=== PATIENT | male | born 1960 | race Caucasian/White ===

== ENCOUNTER 2024-12-07 13:10 | Inpatient (IN) | payer BC, SELFPAY ==
[2024-12-07] VITALS (40 sets, daily range): BP systolic 90–127; BP diastolic 43–80; BMI 30.8; BMI 30.5
--- NOTE | 2024-12-07 08:20 | ED.GENMED ---
History of Present Illness
General
Chief Complaint: Abdominal Symptoms
Source: patient
Exam Limitations: none
Time Seen by Provider: 12/07/24 08:07
Nursing documentation reviewed up to this point in time: agreed with
History of Present Illness
History of Present Illness:
Patient is a 64-year-old male who presents to the ER for evaluation. Patient started with nausea and diarrhea on Saturday, 6 days ago. He reports symptoms started after eating a roast pig. He ate leftover meat as well. His sons had similar
symptoms but symptoms resolved. He does complain of lower abdominal cramping. He reports stool was brown in color and liquidy multiple episodes of day. He denies any blood in the stools. He denies any fever or chills. He has nauseous but only
vomited once. He has not eating a lot and has decreased appetite and does not feel that he is drinking enough as well.
Phy Exam
General Physical Exam
General Presentation: no apparent distress
General age: appears stated age
General Skin: warm and dry
General Habitus: normal
General Mental: alert
General Hydration: dry mucous membranes
Cardiovascular Exam
Cardiovascular Exam: regular rate/rhythm, no murmur and normal peripheral pulses
Pulmonary Exam
Pulmonary Exam: lungs clear and no respiratory distress
Neurological Exam
Neurological Exam: alert and oriented x3
Musculoskeletal Exam
Musculoskeletal Exam: full ROM
Skin Exam
Skin Exam: normal color and warm/dry
Psychiatric Exam
Psychiatric Exam: normal mood/affect
Course
Orders/Labs/Results
Orders:
Orders
12/07/24 Breakfast
Clear Liquid
At Your Request: Full Participation
Does patient need a safe tray?: No
12/07/24 08:11
IV Insert/Care/Rem.- Treatment PRN
0.9% Sodium Chloride 1000 ml [Nss] 1,000 ml IV BOLUS
12/07/24 08:41
Complete Blood Count/With Diff Urgent
Comprehensive Metabolic Panel Urgent
Lipase Urgent
Serum Osmolality Urgent
12/07/24 09:28
Potassium Chloride [KCl] 40 meq PO NOW STA
12/07/24 09:37
Potassium Chloride [KCl] 40 meq 0.9% Sodium Chloride 250 ml [Nss] 250 ml IV NOW
12/07/24 10:08
0.9% Sodium Chloride 500 ml [Nss] 1,000 ml IV BOLUS
12/07/24 10:52
C difficile Antigen & Toxins Urgent
SOULEYMANE Source: ST
Specimen Description:
Date Specimen was Collected: 12/07/24
Time Specimen was Collected: 10:51
Norovirus by PCR Urgent
SOULEYMANE Source: ST
Specimen Description:
Date Specimen was Collected: 12/07/24
Time Specimen was Collected: 10:51
Stool Culture Urgent
SOULEYMANE Source: Feces/Stool
Specimen Description:
Date Specimen was Collected: 12/07/24
Time Specimen was Collected: 10:51
Stool For WBC Urgent
SOULEYMANE Source: ST
Specimen Description:
Date Specimen was Collected: 12/07/24
Time Specimen was Collected: 10:51
12/07/24 11:25
Add On- LAB Urgent
Tests Added?: Serum osmolality
12/07/24 11:26
Urine Osmolality Random [Osmolality, Random Urine] Urgent
Date Specimen was Collected: 12/08/24
Time Specimen was Collected: 02:39
Urine Sodium Urgent
Date Specimen was Collected: 12/08/24
Time Specimen was Collected: 02:39
12/07/24 12:26
Add On- LAB Routine
Tests Added?: urine creatinine
12/07/24 12:29
Admit/Transfer Patient As Directed
Co-Sign Provider:
Level of Care: Inpatient admission
Assign to:: Medical/Surgical
Physician / Group: barbara
Diagnosis: dehdyration/NICOLE
Reason for Hospitalization: dehydration
NICOLE
Expected length of stay greater than two midnights?: Yes
ELOS- Estimated Length of Stay in days: 3
I certify the patient meets the requirements for IP care: Yes
PRN Pain Medication Management As Directed
May give lesser potent ordered pain med per pt: Yes
preference::
Protocol:: Medication orders for pain may be administered in a
manner that supports deferring to patient preference
when the pt is:
- Requesting an ordered lesser potent pain medication.
Least to most potent pain medications are defined
as: acetaminophen < NSAID < tramadol < opioids
(morphine, oxycodone, hydromorphone).
- Requesting a lesser dose of the same medication IF
ORDERED.
- Requesting a less intrusive route of administration
if both routes are prescribed by the provider (PO <
IV).
12/07/24 12:30
Code Status As Directed
Resuscitation Status: Full Code
12/07/24 13:52
Urinalysis Reflex To Culture Urgent
Date Specimen was Collected: 12/07/24
Time Specimen was Collected: 08:22
Urine Creatinine Urgent
Date Specimen was Collected: 12/07/24
Time Specimen was Collected: 08:22
Urine Microscopic Reflex Cult Urgent
12/07/24 17:03
Acetaminophen [Tylenol] 650 mg PO Q4HPRN PRN
12/07/24 17:03
NEPHROLOGY CONSULT Routine
Consulting Provider: Kelvin Brooke
Was physician already notified: Yes
Activity As Directed
Activity Level: As Tolerated
Intake/ Output As Directed
Frequency: Per unit guidelines
Vital Signs As Directed
Frequency: Per unit guidelines
DX Deep Vein Thrombosis Video Routine
12/07/24 18:01
BMP [Basic Metabolic Panel] Stat
12/07/24 20:00
Heparin 5,000 units SC Q12
12/07/24 21:29
Stool For WBC Routine
SOULEYMANE Source: Feces/Stool
Specimen Description:
Date Specimen was Collected: 12/07/24
Time Specimen was Collected: 21:22
12/08/24 06:13
Basic Metabolic Panel IN AM
12/09/24 06:00
Basic Metabolic Panel IN AM
Complete Blood Count/No Diff IN AM
12/10/24 06:00
Basic Metabolic Panel IN AM
Complete Blood Count/No Diff IN AM
12/11/24 06:00
Basic Metabolic Panel IN AM
Complete Blood Count/No Diff IN AM
Abnormal Lab Results
12/07/24
08:41
WBC 14.1 H 10^3/uL
(4.8-10.8)
MCV 79.7 L fL
(80.0-94.0)
MPV 10.7 H fL
(7.4-10.4)
Abs Immat Gran (auto) 0.6 H 10^3/uL
(0-0.05)
Absolute Neuts (auto) 9.0 H 10^3/uL
(1.4-6.5)
Absolute Monos (auto) 2.5 H 10^3/uL
(0.1-0.6)
Immature Gran % 4.1 H %
(0-0.5)
Lymphocytes % 13.5 L %
(20.5-51.1)
Monocytes % 17.7 H %
(1.7-9.3)
Sodium 123 L mmol/L
(135-145)
Potassium 2.8 L mmol/L
(3.5-5.1)
Chloride 90 L mmol/L
(98-107)
Carbon Dioxide 19 L mmol/L
(22-30)
BUN 94 H mg/dl
(9-20)
Creatinine 4.7 H* mg/dL
(0.7-1.3)
Glucose 125 H mg/dl
(70-99)
12/07/24 08:41
12/07/24 08:41
Vital Signs
Initial and Last Documented VS:
Initial Vital Signs
Temp Pulse Resp Pulse Ox
98.0 F 85 16 98
12/07/24 08:01 12/07/24 08:01 12/07/24 08:01 12/07/24 08:01
Last Documented Vital Signs
Temp Pulse Resp BP Pulse Ox
97.8 F 68 18 123/69 97
12/08/24 02:50 12/08/24 02:50 12/08/24 02:50 12/08/24 02:50 12/08/24 02:50
Electric Refrigerator Preparer consulted with Physician
Electric Refrigerator Preparer consulted with physician?: Yes
Name of Physician Consulted: Wilmer
MDM/Problems Addressed
Differential Diagnosis Includes:
Not limited to dehydration colitis electrolyte abnormality
MDM/Problems Addressed:
Patient is a 64-year-old male presents with persistent diarrhea for the past 6 days which started after eating at a pig roast. His sons also has similar symptoms. Patient presents awake alert he appears dry on exam. Labs reviewed, with multiple
abnormalities. Sodium found to be low at 123 with a low potassium of 2.8 and elevated BUN of 94 creatinine of 4.7 no prior history of kidney disease. Patient's last labs from 2021 reviewed with normal creatinine.
On arrival patient had a liter of fluids ordered with Danilo. Case reviewed with nephrology who does feel that this is dehydration and recommends at least 3 L. Supplemental KCl rider ordered along with p.o. K-Dur. Additional labs added on.
Initial CAT scan was ordered for mild crampiness however we will hold off with renal function as this is likely a colitis.
Patient will require admission to the hospital service for close monitoring electrolyte repletion and hydration.
*Pulse Oximetry
SaO2: 98
Oxygen Mode of Delivery: Room air
Patient hypoxic: no
*Critical Care Note
Total Time (30-74mins, 75-104mins- exclusive of procedures): Not Applicable
comment:
Critical care statement: A total of 35 minutes of critical care time was provided for this patient. This includes management of unstable vital signs, evaluation of the patient at bedside, reviewing the patient's pertinent medical records, discussion
with consultants, review of old EKGs and review of pertinent medical records. This time with separate from time utilized to perform the aforementioned documented procedures
Patient Management
Discussion with other providers: Client Care Consultant (Nephrology Dr. Brooke)
ED Attending Note
-
Portions of this chart may have been created with voice recognition software.� Occasional wrong word or��sound alike� substitutions may have occurred due to the inherent limitations of voice recognition software.
Discharge Plan
Departure
Patient Disposition: Admit
Date of Disposition: 12/07/24
Time of Disposition: 09:34
Admit to: Telemetry
Admit to doctor: hospitalist
Presentation/result/management discussed w/ accepting MD/DO: Hospitalist
Patient with high blood pressure during this ER visit?: No
Condition: Fair
Covid-19: Not Applicable
Discharge Problem:
Acute kidney insufficiency, Acute hyponatremia, Acute hypokalemia, Acute dehydration
Interventions
Interventions:
*Risk Screen - Suicide Last Done: 12/07/24 08:01
*General Assessment Last Done: 12/07/24 08:33
*Neglect/Abuse Screening Last Done: 12/07/24 08:01
*ED- Fall Risk Assessment Last Done: 12/07/24 08:33
*ED COVID-19 Vaccine History Last Done: 12/07/24 08:33
*Nursing Disposition Last Done: 12/07/24 18:32
EC-Jjnubf-Fapzmaqggy Assessment Last Done: 12/07/24 09:34
Discharge Date and Time
Discharge Date/Time: 12/07/24 18:20
[2024-12-07] MEDS: NSS 1000 IV ×3 (08:42→14:37)
[2024-12-07 08:57] LABS: Hematocrit 44.8 % (39.0-52.0); Hemoglobin 16.2 g/dL (13.0-18.0); Mean Corp Hgb Conc. 36.2 g/dL (33.0-37.0); Mean Corpuscular Volume 79.7 fL (80.0-94.0); Nucleated Red Blood Cells % 0 % (-); Platelet Count 247 10^3/uL (130-400); Red Cell Dist. Width 13.3 % (11.5-14.5)
[2024-12-07 09:17] LABS: ALT (SGPT) 22 U/L (0-50); AST (SGOT) 20 U/L (17-59); Albumin 4.2 g/dl (3.5-5.0); Alkaline Phosphatase 59 U/L (38-126); Blood Urea Nitrogen 94 mg/dl (9-20); Calcium 8.4 mg/dl (8.4-10.2); Carbon Dioxide 19 mmol/L (22-30); Chloride 90 mmol/L (98-107); Estimated Creatinine Clearance 19 ml/min; Glucose 125 mg/dl (70-99); Lipase 100 U/L (23-300); Potassium 2.8 mmol/L (3.5-5.1); Sodium 123 mmol/L (135-145); Total Protein 6.8 g/dl (6.3-8.2); eGFR 13.29
[2024-12-07] MEDS: KCL 40 MEQ PO ×2 (10:05→21:55)
[2024-12-07] MEDS: KCL 270 MEQ IV (10:16)
--- NOTE | 2024-12-07 12:08 | HPS.HSE ---
Addendum entered and electronically signed by Myles Jackson MD 12/07/24 14:15:
I saw and examined the patient.
The DATA CENTER ARCHITECT or PA's note was reviewed and I agree with the note.
Comment: 64-year-old male with history of hypertension, nicotine dependence came to the hospital with severe hyponatremia, hypokalemia and acute kidney injury likely secondary to hypovolemia with ongoing diarrhea and dehydration. Monitor stool
output. Continue with clears for now. Check stool studies, norovirus, C. difficile. If negative then can give Imodium. Creatinine 4.7 on admission. Continue with hydration. Consult nephrology. Check urine studies
General: Well Developed, Well Nourished and No Apparent Distress
HEENT: Normocephalic, Moist mucous membranes and Atraumatic
Respiratory: Clear
Cardiac: S1/S2 and Regular Rhythm; No Murmur or Rub
GI: Soft, Non Tender, Non Distended and Normal Bowel Sounds
Musculoskeletal: No Edema
Skin: No Rash
Neuro: AO x 3 and Nonfocal/grossly intact
Psych: Calm
I spent a total of 76 minutes with the patient or on the floor. More than 50% of this time involved counseling and coordination of care.
Original Note:
Family Physician
-
Family Physician: Juan Marc
Chief Complaint
-
diarrhea
History of Present Illness
64-year-old male with PMH for GERD, HTN presented to us with diarrhea for past six days. He reports symptoms started after eating a roast pink. His sons had similar symptoms but symptoms resolved. He does complain of generalized abdominal
cramping. He reports stool was brown in color and liquidy. He denies any blood in the stools. He denies any fever or chills. He has nauseous but only vomited once. patient stated poor oral intake. he has not voided since last night. he
complained of BUSTILLOS and dizzy. he was up every 10 minutes for diarrhea. denied chest pain, sob.denied runny nose, congeston and cough. denied dysuria or hematuria.
admitting for further managment.
Medical History
Past Medical History
Past Medical History: Reports Other
Additional Past Medical History:
GERD
Pernicious anemia
Past Surgical History: Reports Other
Additional Past Surgical History:
Cyst removed from neck
Social History
Tobacco: Smoker (0.5 pack daily)
Alcohol: Occasional
Drug: None
Personal:
Living: With Family
Family History
Family History: Not pertinent
Allergies / Home Medications
Allergies reflects when Allergies were last updated in [employer].
Home Medications with original date entered in [employer]
Allergy/Medication List:
Allergies
Allergy/AdvReac Type Severity Reaction Status Date / Time
No Known Allergies Allergy Verified 12/07/24 08:04
Home Medications
cyanocobalamin (vitamin B-12) 1,000 mcg/mL injection solution 1,000 mcg IM QMONTH 01/02/22
lisinopril 10 mg tablet 10 mg PO DAILY 01/02/22
acetaminophen 500 mg tablet (Tylenol Extra Strength) 500 mg PO Q6HPRN PRN MILD PAIN 12/07/24
calcium carbonate (Tums) 200 mg PO QIDPRN PRN GERD 12/07/24
Review of Systems
-
Constitutional: Reports No Symptoms
EENT: Reports No Symptoms
Respiratory: Reports No Symptoms
Cardiac: Reports No Symptoms
Abdomen/GI: Reports Nausea, Vomiting and Diarrhea
: Reports No Symptoms
Musculoskeletal: Reports No Symptoms
Skin: Reports No Symptoms
Neurological: Reports No Symptoms
Endocrine: Reports No Symptoms
Hematologic/Lymphatic: Reports No Symptoms
Psych: Reports No Symptoms
Physical Exam
Vital Signs
Vital Signs
Temp Pulse Resp BP Pulse Ox
98.0 F 69 17 118/66 100
12/07/24 08:01 12/07/24 11:30 12/07/24 11:30 12/07/24 11:30 12/07/24 11:30
Physical Exam
General: Well Developed, Well Nourished and No Apparent Distress
HEENT: NormoCephalic, Moist mucous membranes and Atraumatic
Respiratory: Clear
Cardiac: S1/S2 and Regular Rhythm; No Murmur or Rub
GI: Soft, Non Tender, Non Distended and Normal Bowel Sounds; No Organomegaly
Rectal: Deferred by Provider
Musculoskeletal: No Clubbing, No Cyanosis and No Edema
Skin: No Rash
Neuro: AO x 3 and Nonfocal/grossly intact
Psych: Calm
Laboratory Results
-
12/07/24 08:41
12/07/24 08:41
Laboratory Results
Total Bilirubin 0.7 mg/dl (0.2-1.3) 12/07/24 08:41
AST 20 U/L (17-59) 12/07/24 08:41
ALT 22 U/L (0-50) 12/07/24 08:41
Alkaline Phosphatase 59 U/L (38-126) 12/07/24 08:41
Lipase 100 U/L (23-300) 12/07/24 08:41
Data Reviewed
-
Lab Data: Labs Reviewed by me
Impression/Plan
-
# Diarrhea likely from food poisoning
- Clear liquid diet
- Stool for cultures, norovirus, c diff, wbc
-WBCs 14.1
-Advance diet as tolerated
# Acute kidney injury/hyponatremia/hypokalemia secondary to hypovolemia secondary to diarrhea
- Creatinine 4.7, BUN 94, K2.8, sodium 123
- Patient received IV KCl/oral KCl in ER
- Patient received normal saline in ER
- Continue to monitor BMP
-Urine osmole, serum awesome, urinalysis, urine sodium pending
- Nephrology aware
#essential HTN
-hold lisinopril due to NICOLE
#Nicotine Dependence
-denied Nicotine patch
-encouraged Smoking Cessation
#DVT prophylaxis
-heparin sq
#CODE status
-full code
[2024-12-07 14:11] LABS: Urine Character Clear (Clear)
[2024-12-07 14:32] LABS: Urine Squamous Cell 0-2 /LPF (Few)
[2024-12-07 14:33] LABS: Urine Red Blood Cell 0-2 /HPF (0-2)
--- NOTE | 2024-12-07 15:29 | W.CON.NEPH ---
Consultation
-
Date/Time Consultation Requested: 12/07/2024 11 AM
Date/Time Consultation Performed: 11/29/2024 11 AM
Requesting Provider: Dr. Hollis
Performing Provider: Dr. Brooke
Reason for Consultation: NICOLE
Medical History
-
Chief Complaint: Diarrhea
History of Present Illness:
Hypertension treated with low-dose lisinopril only which has been stable over time. He has known reflux but does not require chronic proton pump inhibitor therapy. He developed diarrhea for 6 days time which was frequent, at least every 2 or 3
hours. This appeared to be after eating roast pork about 1 week ago. He denied any blood in the stools. There is general abdominal cramping but no vomiting. He does have mild nausea. He had not taken his lisinopril in the first 3 days but after
that began taking it once more. He does report some mild lightheadedness. He has no chest pain or shortness of breath. He has not been able to have much intake given the diarrhea and nausea. He also has had loss of appetite as a result. On
admission he was noted to have a creatinine of 4.7 with sodium that was low potassium that was low and mild metabolic acidosis.
Past Medical History
GERD
Pernicious anemia
Cyst removal
Social History
Tobacco: Smoker
Alcohol: Occasional
Family History
Family History: Not Pertinent
Allergies / Home Medications
Allergy/AdvReac Type Severity Reaction Status Date / Time
No Known Allergies Allergy Verified 12/07/24 08:04
�Medication �Instructions �Recorded �Confirmed �Type
cyanocobalamin (vitamin B-12) 1,000 mcg IM QMONTH 01/02/22 12/07/24 History
1,000 mcg/mL injection solution
lisinopril 10 mg tablet 10 mg PO DAILY 01/02/22 12/07/24 History
acetaminophen 500 mg tablet 500 mg PO Q6HPRN PRN MILD PAIN 12/07/24 12/07/24 History
(Tylenol Extra Strength)
calcium carbonate (Tums) 200 mg PO QIDPRN PRN GERD 12/07/24 12/07/24 History
Review of Systems
-
Diarrhea, nausea minimal vomiting. No chest pain no issues with urination
All other systems: Negative unless noted
Physical Exam
Vital Signs
Vital Signs
Temp Pulse Resp BP Pulse Ox
98.0 F 68 13 110/69 100
12/07/24 08:01 12/07/24 14:18 12/07/24 14:18 12/07/24 14:18 12/07/24 14:18
Lab Results
WBC 14.1 10^3/uL (4.8-10.8) H 12/07/24 08:41
RBC 5.62 10^6/uL (4.70-6.10) 12/07/24 08:41
Hgb 16.2 g/dL (13.0-18.0) 12/07/24 08:41
Hct 44.8 % (39.0-52.0) 12/07/24 08:41
Plt Count 247 10^3/uL (130-400) 12/07/24 08:41
eGFR 13.29 12/07/24 08:41
Albumin 4.2 g/dl (3.5-5.0) 12/07/24 08:41
Laboratory Tests
12/07/24 12/07/24
08:41 13:52
Sodium 123 L
Potassium 2.8 L
Chloride 90 L
Carbon Dioxide 19 L
BUN 94 H
Creatinine 4.7 H*
Serum Osmolality 289
Ur Specific [place] 1.015
Ur Occult Blood Reflex 1+ A
Urine RBC 0-2
Urine Bacteria (Reflex) Few A
Urine Creatinine 109.000
Urine Albumin (Reflex) 2+ A
Laboratory Tests
12/29/21
06:59
Creatinine 1.1
Physical Exam
Patient is awake alert oriented and in no distress. Mood and affect were pleasant, insight and judgment were good. Pupils are equal round and reactive to light, extraocular movements are intact, sclera were anicteric. Hearing was normal, ears and
nose are intact. Oropharynx was clear. Neck was supple with trachea midline and no thyromegaly. Heart was regular rate and rhythm without rubs. Lower extremities without edema. Lungs were clear to auscultation bilaterally and with normal
excursion. Abdomen was soft, nontender, with normal active bowel sounds, and no hepatosplenomegaly. Skin was without rash and with normal turgor.
Data Reviewed
-
Labs: Labs Reviewed by me
Old Records: Reviewed
Assessment/Plan
-
Assessment
NICOLE
Diarrhea
GERD
Hyponatremia
Hypokalemia
Metabolic acidosis
Hypotension
Plan
Aggressive IV fluid resuscitation. I suspect that he is at least 8-10 L deficit.
He will need at least 6 L today of saline.
Potassium will be replaced
Follow BMP
Check fractional excretion of sodium
If potassium does not correct easily will need EKG
Hold lisinopril
--- NOTE | 2024-12-07 18:41 | PTCARENOTE ---
Pt received from ED and walked to bed from ED stretcher without assistance. VSS. AAOx4. IV fluids infusing. Pt stating that pain and weakness has improved since arrival to the hospital and he is now hungry. Clear liquid diet ordered. Call [facility]
within reach, POC ongoing.
[2024-12-07 18:45] LABS: Blood Urea Nitrogen 81 mg/dl (9-20); Calcium 7.1 mg/dl (8.4-10.2); Carbon Dioxide 21 mmol/L (22-30); Chloride 100 mmol/L (98-107); Estimated Creatinine Clearance 28 ml/min; Glucose 85 mg/dl (70-99); Potassium 3.1 mmol/L (3.5-5.1); Sodium 128 mmol/L (135-145); eGFR 20.31
[2024-12-07] MEDS: HEPARIN 5000 UNITS SC (20:52)
[2024-12-08] MEDS: NSS 1000 IV ×2 (01:06→13:36)
[2024-12-08 02:50] VITALS: BP 123/69
[2024-12-08 06:57] LABS: Hematocrit 40.3 % (39.0-52.0); Hemoglobin 14.7 g/dL (13.0-18.0); Mean Corp Hgb Conc. 36.5 g/dL (33.0-37.0); Mean Corpuscular Volume 81.3 fL (80.0-94.0); Platelet Count 185 10^3/uL (130-400); Red Cell Dist. Width 13.7 % (11.5-14.5)
[2024-12-08 07:00] LABS: Blood Urea Nitrogen 70 mg/dl (9-20); Calcium 7.5 mg/dl (8.4-10.2); Carbon Dioxide 20 mmol/L (22-30); Chloride 105 mmol/L (98-107); Estimated Creatinine Clearance 38 ml/min; Glucose 80 mg/dl (70-99); Potassium 3.4 mmol/L (3.5-5.1); Sodium 132 mmol/L (135-145); eGFR 29.76
[2024-12-08 07:46] VITALS: BP 118/63
[2024-12-08] MEDS: HEPARIN 5000 UNITS SC ×2 (08:17→19:34)
[2024-12-08 09:14] LABS: Nucleated Red Blood Cells % 0 % (-)
[2024-12-08] MEDS: KCL 40 MEQ PO (10:04)
[2024-12-08] MEDS: IMODIUM 2 MG PO ×2 (10:22→17:42)
--- NOTE | 2024-12-08 10:26 | CM ---
Addendum entered by Amalia Ledbetter 12/08/24 10:29:
correction: Pharmacy: [facility] [address], [place]
Original Note:
Patient seen at bedside with his sister
IA completed
Lives in a 1 story home with his sons, no GIL
PLOF: independent, drives
PLOF: Independent
Denies DME
Denies VN/Rehab
Denies Insecurities
PCP: Dr. Marc
Pharmacy: [facility], [facility], [place]
PLAN: home, no needs
sister to transport
[2024-12-08 11:15] VITALS: BP 116/63
--- NOTE | 2024-12-08 11:43 | W.PN.HOSP.TC ---
Today's Communication/Plan
-
Monitor vital signs see plan
Normal saline
Advance diet to full's, if tolerates then solids
Imodium
monitor renal function
Assessment / Plan
Assessment / Plan
General: Well Developed, Well Nourished and No Apparent Distress
HEENT: Normocephalic, Moist mucous membranes and Atraumatic
Respiratory: Clear
Cardiac: S1/S2 and Regular Rhythm; No Murmur or Rub
GI: Soft, Non Tender, Non Distended and Normal Bowel Sounds
Musculoskeletal: No Edema
Skin: No Rash
Neuro: AO x 3 and Nonfocal/grossly intact
Psych: Calm
Diarrhea likely from food poisoning/gastritis
Tolerating clears, advance to full's
C. difficile, norovirus negative.
Imodium
- Stool for cultures, norovirus, c diff, wbc
Acute kidney injury/hyponatremia/hypokalemia secondary to hypovolemia secondary to diarrhea
- Creatinine 4.7, BUN 94, K2.8, sodium 123
Replete potassium
Continue with normal saline
Creatinine improving
Nephrology following
Monitor renal function
#essential HTN
-hold lisinopril due to NICOLE
#Nicotine Dependence
-denied Nicotine patch
-encouraged Smoking Cessation
#DVT prophylaxis
-heparin sq
#CODE status
-full code
I spent a total of 52 minutes with the patient or on the floor. More than 50% of this time involved counseling and coordination of care.
Anticipated Discharge: 24 - 48 hours
Subjective/Interval History
-
Date of Service: December 08, 2024
Denies nausea
Objective Data
-
Labs:
Laboratory Results
12/08/24
06:13
WBC 10.5
Hgb 14.7
Hct 40.3
Plt Count 185 D
Sodium 132 L
Potassium 3.4 L
Chloride 105
Carbon Dioxide 20 L
BUN 70 H
Creatinine 2.4 H
Glucose 80
Calcium 7.5 L
Vital Signs:
Vital Signs
Temp Pulse Resp BP Pulse Ox
98.1 F 69 16 116/63 99
12/08/24 11:15 12/08/24 11:15 12/08/24 11:15 12/08/24 11:15 12/08/24 11:15
I&O
12/07/24 12/08/24 12/09/24
06:59 06:59 06:59
Output Total 350 / 350
Balance -350 / -350
--- NOTE | 2024-12-08 14:42 | W.PN.NEPH.PH ---
Today's Communication / Plan
-
IVF
Assessment/Plan
-
Assessment
NICOLE
Diarrhea
GERD
Hyponatremia
Hypokalemia
Metabolic acidosis
Hypotension
Plan
continue IVF
Potassium will be replaced
Follow BMP
await fractional excretion of sodium
Hold lisinopril
-
-
Date of Service: December 08, 2024
CC / HPI / ROS
-
Chief Complaint:
NICOLE
History of Present Illness:
NICOLE/Cr down to 2.4
BP stable
diarrhea improving
K up to 3.4
Review of Systems:
no CP/SOB
Labs
-
Labs:
WBC 10.5 10^3/uL (4.8-10.8) 12/08/24 06:13
RBC 4.96 10^6/uL (4.70-6.10) 12/08/24 06:13
Hgb 14.7 g/dL (13.0-18.0) 12/08/24 06:13
Hct 40.3 % (39.0-52.0) 12/08/24 06:13
Plt Count 185 10^3/uL (130-400) D 12/08/24 06:13
Sodium 132 mmol/L (135-145) L 12/08/24 06:13
Potassium 3.4 mmol/L (3.5-5.1) L 12/08/24 06:13
Chloride 105 mmol/L (98-107) 12/08/24 06:13
Carbon Dioxide 20 mmol/L (22-30) L 12/08/24 06:13
BUN 70 mg/dl (9-20) H 12/08/24 06:13
Creatinine 2.4 mg/dL (0.7-1.3) H 12/08/24 06:13
eGFR 29.76 12/08/24 06:13
Glucose 80 mg/dl (70-99) 12/08/24 06:13
Calcium 7.5 mg/dl (8.4-10.2) L 12/08/24 06:13
Albumin 4.2 g/dl (3.5-5.0) 12/07/24 08:41
Physical Exam
-
Vital Signs:
Vital Signs
Temp Pulse Resp BP Pulse Ox
98.1 F 69 16 116/63 99
12/08/24 11:15 12/08/24 11:15 12/08/24 11:15 12/08/24 11:15 12/08/24 11:15
Respiratory:: Bilateral: CTA
Lung Excursion:: Normal
Abdomen:: Nontender and Soft
Bowel Sounds:: Normal
Extremity Edema:: None: Bilateral:
[2024-12-08 14:55] VITALS: BP 121/72
[2024-12-08 19:00] VITALS: BP 114/61
[2024-12-08 22:53] VITALS: BP 120/63
[2024-12-09 03:00] VITALS: BP 108/64
[2024-12-09] MEDS: NSS 1000 IV ×2 (06:11→22:15)
[2024-12-09 07:27] LABS: Blood Urea Nitrogen 42 mg/dl (9-20); Calcium 7.9 mg/dl (8.4-10.2); Carbon Dioxide 20 mmol/L (22-30); Chloride 108 mmol/L (98-107); Estimated Creatinine Clearance 66 ml/min; Glucose 98 mg/dl (70-99); Potassium 3.3 mmol/L (3.5-5.1); Sodium 134 mmol/L (135-145); eGFR 56.83
[2024-12-09 07:39] VITALS: BP 123/67
[2024-12-09 07:57] LABS: Hematocrit 39.0 % (39.0-52.0); Hemoglobin 13.9 g/dL (13.0-18.0); Mean Corp Hgb Conc. 35.6 g/dL (33.0-37.0); Mean Corpuscular Volume 81.4 fL (80.0-94.0); Platelet Count 196 10^3/uL (130-400); Red Cell Dist. Width 13.6 % (11.5-14.5)
[2024-12-09] MEDS: HEPARIN 5000 UNITS SC (08:17)
[2024-12-09] MEDS: KCL 40 MEQ PO (08:55)
[2024-12-09 09:11] LABS: Nucleated Red Blood Cells % 0 % (-)
[2024-12-09] MEDS: IMODIUM 2 MG PO (11:29)
[2024-12-09] MEDS: CIPRO 500 MG PO ×2 (11:29→19:59)
[2024-12-09 11:45] VITALS: BP 114/59
--- NOTE | 2024-12-09 11:58 | W.PN.NEPH.PH ---
Today's Communication / Plan
-
IV fluid
Okay for discharge from renal standpoint
Assessment/Plan
-
Assessment
NICOLE
Diarrhea-Salmonella
GERD
Hyponatremia
Hypokalemia
Metabolic acidosis
Hypotension
Plan
IV fluid
Hold lisinopril
NICOLE improved creatinine 1 point
Antibiotic
Will be okay for discharge from renal standpoint
-
-
Date of Service: December 09, 2024
CC / HPI / ROS
-
Chief Complaint:
NICOLE
History of Present Illness:
NICOLE/Cr down with IV diagnosed with Salmonella GI
BP stable
diarrhea improving
Review of Systems:
no CP/SOB
Labs
-
Labs:
WBC 10.6 10^3/uL (4.8-10.8) 12/09/24 06:44
RBC 4.79 10^6/uL (4.70-6.10) 12/09/24 06:44
Hgb 13.9 g/dL (13.0-18.0) 12/09/24 06:44
Hct 39.0 % (39.0-52.0) 12/09/24 06:44
Plt Count 196 10^3/uL (130-400) 12/09/24 06:44
Sodium 134 mmol/L (135-145) L 12/09/24 06:44
Potassium 3.3 mmol/L (3.5-5.1) L 12/09/24 06:44
Chloride 108 mmol/L (98-107) H 12/09/24 06:44
Carbon Dioxide 20 mmol/L (22-30) L 12/09/24 06:44
BUN 42 mg/dl (9-20) H 12/09/24 06:44
Creatinine 1.4 mg/dL (0.7-1.3) H 12/09/24 06:44
eGFR 56.83 12/09/24 06:44
Glucose 98 mg/dl (70-99) 12/09/24 06:44
Calcium 7.9 mg/dl (8.4-10.2) L 12/09/24 06:44
Albumin 4.2 g/dl (3.5-5.0) 12/07/24 08:41
Physical Exam
-
Vital Signs:
Vital Signs
Temp Pulse Resp BP Pulse Ox
97.8 F 74 17 123/67 98
12/09/24 07:39 12/09/24 07:39 12/09/24 07:39 12/09/24 07:39 12/09/24 07:39
Respiratory:: Bilateral: CTA
Lung Excursion:: Normal
Abdomen:: Nontender and Soft
Bowel Sounds:: Normal
Extremity Edema:: None: Bilateral:
--- NOTE | 2024-12-09 12:08 | W.PN.HOSP.TC ---
Today's Communication/Plan
-
Monitor vital sign
see plan
Replete potassium
Monitor sodium
Continue with IV fluids today
Start ciprofloxacin
Monitor on low residue diet
Hopeful discharge tomorrow
Assessment / Plan
Assessment / Plan
General: Well Developed, Well Nourished and No Apparent Distress
HEENT: Normocephalic, Moist mucous membranes and Atraumatic
Respiratory: Clear
Cardiac: S1/S2 and Regular Rhythm; No Murmur or Rub
GI: Soft, Non Tender, Non Distended and Normal Bowel Sounds
Musculoskeletal: No Edema
Skin: No Rash
Neuro: AO x 3 and Nonfocal/grossly intact
Psych: Calm
Diarrhea likely from food poisoning/gastritis
Slowly improving however still has some GI discomfort. Advance diet to low residue and monitor
Salmonella positive, given his symptoms we will treat with antibiotic
C. difficile, norovirus negative.
Imodium prn
Acute kidney injury/hyponatremia/hypokalemia secondary to hypovolemia secondary to diarrhea
- Creatinine 4.7, BUN 94, K2.8, sodium 123
Replete potassium
Continue with IVF today
Creatinine improving
Nephrology following
Monitor renal function
#essential HTN
-hold lisinopril due to NICOLE
#Nicotine Dependence
-denied Nicotine patch
-encouraged Smoking Cessation
#DVT prophylaxis
-heparin sq
#CODE status
-full code
Anticipated Discharge: Within 24 hours
Subjective/Interval History
-
Date of Service: December 09, 2024
slowly improving
Objective Data
-
Labs:
Laboratory Results
12/09/24
06:44
WBC 10.6
Hgb 13.9
Hct 39.0
Plt Count 196
Sodium 134 L
Potassium 3.3 L
Chloride 108 H
Carbon Dioxide 20 L
BUN 42 H
Creatinine 1.4 H
Glucose 98
Calcium 7.9 L
Vital Signs:
Vital Signs
Temp Pulse Resp BP Pulse Ox
97.8 F 74 17 123/67 98
12/09/24 07:39 12/09/24 07:39 12/09/24 07:39 12/09/24 07:39 12/09/24 07:39
I&O
12/08/24 12/09/24 12/10/24
06:59 06:59 06:59
Intake Total 390 / 390
Output Total 350 / 350 300 / 300
Balance -350 / -350 90 / 90
--- NOTE | 2024-12-09 12:43 | CM ---
Patient chart reviewed
Nileshro started
tentative dc tomorrow per note
PLAN: Home no needs
sister to transport
[2024-12-09 15:36] VITALS: BP 133/68
[2024-12-09 23:06] VITALS: BP 116/59
[2024-12-10] MEDS: CIPRO 500 MG PO (07:41)
[2024-12-10 07:45] LABS: Hematocrit 40.1 % (39.0-52.0); Hemoglobin 14.4 g/dL (13.0-18.0); Mean Corp Hgb Conc. 35.9 g/dL (33.0-37.0); Mean Corpuscular Volume 81.7 fL (80.0-94.0); Platelet Count 209 10^3/uL (130-400); Red Cell Dist. Width 13.7 % (11.5-14.5)
[2024-12-10 07:49] VITALS: BP 119/65
[2024-12-10 08:12] LABS: Blood Urea Nitrogen 27 mg/dl (9-20); Calcium 8.1 mg/dl (8.4-10.2); Carbon Dioxide 23 mmol/L (22-30); Chloride 107 mmol/L (98-107); Estimated Creatinine Clearance 71 ml/min; Glucose 103 mg/dl (70-99); Potassium 3.6 mmol/L (3.5-5.1); Sodium 136 mmol/L (135-145); eGFR > 60.00
[2024-12-10 08:51] LABS: Nucleated Red Blood Cells % 0 % (-)
--- NOTE | 2024-12-10 10:25 | W.PN.HOSP.TC ---
Today's Communication/Plan
-
monitor vitals
see plan
cw abx
dc today
repeat BMP next week with pcp
time of discharge 38 minutes
Assessment / Plan
Assessment / Plan
General: Well Developed, Well Nourished and No Apparent Distress
HEENT: Normocephalic, Moist mucous membranes and Atraumatic
Respiratory: Clear
Cardiac: S1/S2 and Regular Rhythm; No Murmur or Rub
GI: Soft, Non Tender, Non Distended and Normal Bowel Sounds
Musculoskeletal: No Edema
Neuro: AO x 3 and Nonfocal/grossly intact
Psych: Calm
Diarrhea likely from food poisoning/gastritis from salmonella
Slowly improving however still has some GI discomfort. tolerating low res diet. dc today
Salmonella positive, given his symptoms we will treat with antibiotic
C. difficile, norovirus negative.
Imodium prn
leukocytosis; symptoms improving. no fever
Acute kidney injury/hyponatremia/hypokalemia secondary to hypovolemia secondary to diarrhea
- Creatinine 4.7, BUN 94, K2.8, sodium 123
potassium improved
dc further IVF
Creatinine improving; 1.3 today
Nephrology following
Monitor renal function
#essential HTN
-hold lisinopril due to NICOLE and normal BP
#Nicotine Dependence
-denied Nicotine patch
-encouraged Smoking Cessation
#DVT prophylaxis
-heparin sq
#CODE status
-full code
Anticipated Discharge: Today
Subjective/Interval History
-
Date of Service: December 10, 2024
denies pain
Objective Data
-
Labs:
Laboratory Results
12/10/24
06:47
WBC 15.3 H
Hgb 14.4
Hct 40.1
Plt Count 209
Sodium 136
Potassium 3.6
Chloride 107
Carbon Dioxide 23
BUN 27 H
Creatinine 1.3
Glucose 103 H
Calcium 8.1 L
Vital Signs:
Vital Signs
Temp Pulse Resp BP Pulse Ox
98.2 F 68 14 119/65 99
12/10/24 07:49 12/10/24 07:49 12/10/24 07:49 12/10/24 07:49 12/10/24 07:49
I&O
12/09/24 12/10/24 12/11/24
06:59 06:59 06:59
Intake Total 390 / 390 1440 / 1440
Output Total 300 / 300
Balance 90 / 90 1440 / 1440
--- NOTE | 2024-12-10 10:32 | W.DCSUMMARY ---
Discharge Summary
Discharge Data
Date of Admission: 12/07/24
Date of Discharge: 12/10/24
-
Pending Results: Yes
Hospital Course
64-year-old male with past medical history of nicotine dependence, essential hypertension came to the hospital with diarrhea secondary to food poisoning/gastritis from Salmonella. Patient over time continue to improve and was able to tolerate low
residue diet. He was also started on antibiotic for Salmonella which was continued for few days for treatment. C. difficile and norovirus were negative. On admission he also had significant acute kidney injury with hyponatremia and hypokalemia
secondary to hypovolemia from diarrhea. His kidney function and electrolyte continue to improve with fluid resuscitation. He was seen by nephrology. His discharge creatinine was 1.3. On discharge he was instructed to get CBC and BMP outpatient.
Since his blood pressure was stable and he did had elevated creatinine, lisinopril was held on discharge and he was instructed to resume lisinopril once his blood pressure is greater than 140/90. Once his symptoms continue to improve, he was then
discharged home with instructions to follow-up with all his physicians outpatient.
Discharge Plan
-
Patient Disposition: Home (Routine Discharge)
Discharge Diagnosis/Procedures: Diarrhea likely from food poisoning/gastritis from salmonella
Acute kidney injury/hyponatremia/hypokalemia secondary to hypovolemia secondary to diarrhea
Diet: Low Residue
Activity: As tolerated
Driving Restrictions: As prior to admission
Bathing Restrictions: None
Blood Work: CBC and BMP next week with primary care provider
Referrals:
Juan Marc DO [Family Provider, Family Practice] - in less than 1 week
Prescriptions:
New
loperamide 2 mg Capsule
2 mg PO Q6HPRN PRN (Reason: diarrhea) Qty: 0 0RF
ciprofloxacin HCl 500 mg Tablet
500 mg PO BID Qty: 8 0RF
Continued
cyanocobalamin (vitamin B-12) 1,000 mcg/mL Solution
1,000 mcg IM QMONTH
acetaminophen [Tylenol Extra Strength] 500 mg Tablet
500 mg PO Q6HPRN PRN (Reason: mild pain)
calcium carbonate [Tums] 200 mg calcium (500 mg) Tablet,Chewable
200 mg PO QIDPRN PRN (Reason: GERD)
Held
lisinopril 10 mg Tablet
10 mg PO DAILY
Hold Instructions: restart when BP >140/90
Discharge Orders:
Discharge Patient (As Directed); Ordered 12/10/24
Ordered By: Myles Jackson
Discharge Date and Time
Discharge Date/Time: 12/10/24 10:52
Print Language: CAMBODIAN
[2024-12-10] MEDS: NSS IV (10:38)
--- NOTE | 2024-12-10 10:52 | CM ---
Patient seen at bedside with sister
discharge today to home
IMM n/a
no needs
PLAN: Home, no needs
sister to transport
== END 2024-12-10 10:52 | disposition home or self-care (01) | DRG 372 ==
LOC: 3 WEST ACU 13:10
PROVIDERS: Nurse Practitioner; Registered Nurse; ADMITTING PHYSICIAN Internal Medicine; CONSULT PHYSICIAN Specialist; EMERGENCY PHYSICIAN Emergency Medicine; FAMILY PHYSICIAN Family Medicine
DX: A02.0 Salmonella enteritis (principal); E87.1 Hypo-osmolality and hyponatremia; N17.9 Acute kidney failure, unspecified; E87.20 Acidosis, unspecified; E86.1 Hypovolemia; E87.6 Hypokalemia; F17.210 Nicotine dependence, cigarettes, uncomplicated; I10 Essential (primary) hypertension; K21.9 Gastro-esophageal reflux disease without esophagitis; E86.0 Dehydration; Z79.899 Other long term (current) drug therapy
CPT/HCPCS: 80048; 80053; 81003; 81015; 82570; 83690; 83930; 83935; 84300; 85025; 87045; 87046; 87077; 87184; 87186; 87324; 87427; 87449; 87798; 89055; 93005; 96361; 96374; 99285; 99406